=== PATIENT | female | born 1985 ===

== ENCOUNTER 2017-05-08 13:00 | Emergency (ER) | payer SELFPAY ==
[2017-05-08 13:10] VITALS: BMI 27.8
[2017-05-08 13:11] VITALS: TEMP 98.1
[2017-05-08] MEDS ORDERED: Sodium Chloride 0.9% 1,000 ML IV ONE (13:18)
--- NOTE | 2017-05-08 13:31 | C.PDOC ---
History Of Present Illness 31 y/o female presents to ED with complaints of left flank pain and back pain worsening for last few days. Patient reports urinary frequency, subjective fever 2 days ago and mild diarrhea. Patient states "feels sob with pain" and denies known trauma or any other complaints Time Seen by Provider: 05/08/17 13:14 Chief Complaint (Nursing): Back Pain History Per: Patient History/Exam Limitations: no limitations Onset/Duration Of Symptoms: Days Current Symptoms Are (Timing): Still Present Past Medical History Reviewed: Historical Data, Nursing Documentation, Vital Signs Vital Signs: Last Vital Signs Temp 98.1 F 05/08/17 16:10 Pulse 72 05/08/17 16:10 Resp 16 05/08/17 16:10 BP 99/66 L 05/08/17 16:10 Pulse Ox 100 05/08/17 16:10 Surgical History: Cholecystectomy Family History: States: No Known Family Hx - Social History Hx Alcohol Use: No Hx Substance Use: No - Immunization History Hx Tetanus Toxoid Vaccination: No Hx Influenza Vaccination: No Hx Pneumococcal Vaccination: No Review Of Systems Except As Marked, All Systems Reviewed And Found Negative. Respiratory: Positive for: Shortness of Breath Gastrointestinal: Positive for: Diarrhea Musculoskeletal: Positive for: Back Pain Physical Exam - Physical Exam Appears: Non-toxic, No Acute Distress Skin: Normal Color, Warm, Dry, No Rash Head: Atraumatic, Normacephalic Eye(s): bilateral: Normal Inspection Oral Mucosa: Moist Chest: Symmetrical Cardiovascular: Rhythm Regular, No Murmur Respiratory: Normal Breath Sounds, No Rales, No Rhonchi, No Wheezing Gastrointestinal/Abdominal: Soft, No Tenderness, No Guarding, No Rebound Back: Other (mild left flank tenderness) Neurological/Psych: Oriented x3, Normal Speech ED Course And Treatment - Laboratory Results Result Diagrams: 05/08/17 13:40 05/08/17 13:40 O2 Sat by Pulse Oximetry: 99 (RA) Pulse Ox Interpretation: Normal Medical Decision Making Medical Decision Making: r/o uti/pyelo renal stone. labs imaging pending 500: ct shows large ovarian cyst, recommend US. US confirmed 2 cm ovarian cyst, no e/o of torsion. pt with left flank pain, urinary symptoms, subjective fever. will treat as pyelo, culture pending. advise outpt f/u and return precautions Disposition - Disposition Referrals: [facility] [Outside] [facility] [Outside] [facility] [Outside] [facility] [Outside] Oscar Travis MD [Staff Provider] - Disposition: HOME/ ROUTINE Disposition Time: 16:07 Condition: STABLE Additional Instructions: please follow up in clinic. return to er with worsening symptoms or concerns. you will need followup for your ultrasound findings. Prescriptions: Cefpodoxime [Vantin] 100 mg PO BID #14 tab Instructions: Ovarian Cyst (ED), Acute Pyelonephritis (ED), Dyspnea (ED), Flank Pain (ED) Forms: [employer] (Guamanian) - Clinical Impression Clinical Impression: Flank pain, Ovarian cyst, UTI (urinary tract infection) - PA / HAND [employer]NEL [employer]ATER / Resident Statement MD/DO has examined the patient and agrees with the treatment plan. - Scribe Statement The provider has reviewed the documentation as recorded by the Martaibamaya Mistry All medical record entries made by the Martaibamaya were at my direction and personally dictated by me. I have reviewed the chart and agree that the record accurately reflects my personal performance of the history, physical exam, medical decision making, and the department course for this patient. I have also personally directed, reviewed, and agree with the discharge instructions and disposition.
[2017-05-08] MEDS ORDERED: Sodium Chloride 0.9% 1,000 ML ONE (13:32)
--- NOTE | 2017-05-08 13:40 | RAD ---
HISTORY: abd pain COMPARISON: None available. TECHNIQUE: Chest PA and lateral FINDINGS: Examination limited by habitus. LUNGS: Subsegmental left basilar atelectasis. Please note that chest x-ray has limited sensitivity for the detection of pulmonary masses. PLEURA: No significant pleural effusion identified. No definite pneumothorax . CARDIOVASCULAR: The cardiomediastinal silhouette appears within normal limits of size. OSSEOUS STRUCTURES: No acute osseous abnormality identified. VISUALIZED UPPER ABDOMEN: Unremarkable. OTHER FINDINGS: None. IMPRESSION: Subsegmental left basilar atelectasis.
[2017-05-08 13:46] LABS: RBC URINE 5 /hpf (0-3); URINE BACTERIA OCC (<OCC); URINE BILIRUBIN NEGATIVE (NEGATIVE); URINE BLOOD NEGATIVE (NEGATIVE); URINE COLOR Yellow (YELLOW); URINE GLUCOSE (UA) NORMAL (Normal); URINE KETONE TRACE mg/dL (NEGATIVE); URINE LEUKOCYTE ESTERASE 2+ Leu/uL (Negative); URINE PROTEIN NEGATIVE (NEGATIVE); URINE UROBILINOGEN NORMAL mg/dL (0.2-1.0); WBC URINE 5 /hpf (0-5)
[2017-05-08 13:49] LABS: BASO % 0.2 % (0.0-2.0); EOS # 0.2 K/uL (0.0-0.7); EOS % 1.9 % (0.0-4.0); HEMATOCRIT 34.5 % (34.0-47.0); LYMPH # 2.9 K/uL (1.0-4.3); LYMPH % 36.3 % (20.0-40.0); MEAN CELL VOLUME 66.2 fL (81.0-99.0); MEAN CORPUSCULAR HGB CONC 31.8 g/dL (33.0-37.0); MEAN PLATELET VOLUME 8.4 fL (7.2-11.7); MONO # 0.8 K/uL (0.0-0.8); MONO % 9.4 % (0.0-10.0); NRBC % 0.1 % (0.0-2.0); RED CELL DISTRIBUTION WIDTH 17.8 % (11.5-14.5)
[2017-05-08] MEDS ORDERED: cefTRIAXone IV 1 gm in Dextros 50 ML IVPB STA (13:51)
[2017-05-08 13:57] LABS: INR 1.1
[2017-05-08 14:01] LABS: ALB/GLOB RATIO 1.1 (1.0-2.1); ALKALINE PHOSPHATASE 76 U/L (38-126); ALT/SGPT 26 U/L (9-52); AST/SGOT 20 U/L (14-36); BILIRUBIN,TOTAL 0.2 mg/dL (0.2-1.3); BLOOD UREA NITROGEN 11 mg/dL (7-17); CALCIUM 9.4 mg/dl (8.6-10.4); CARBON DIOXIDE 24 mmol/L (22-30); CHLORIDE 101 mmol/L (98-107); GFR AFRICAN-AMERICAN > 60; GLUCOSE,RANDOM 79 mg/dL (65-105); SODIUM 142 mmol/L (132-148); TOTAL PROTEIN 8.2 g/dL (6.3-8.3)
[2017-05-08] MEDS ORDERED: cefTRIAXone IV 1 gm in Dextros 50 ML IVPB ONE (14:21)
--- NOTE | 2017-05-08 14:45 | CT ---
PROCEDURE: CT Abdomen and Pelvis without Oral or IV contrast. HISTORY: left flank pain COMPARISON: None available. TECHNIQUE: Contiguous axial images of the abdomen and pelvis. No oral or IV contrast administered. Coronal and Sagittal reformats generated and reviewed. Radiation dose: Total exam DLP = 595.74 mGy-cm. This CT exam was performed using one or more of the following dose reduction techniques: Automated exposure control, adjustment of the mA and/or kV according to patient size, and/or use of iterative reconstruction technique. FINDINGS: There is limited evaluation of the solid organs without the administration of IV contrast. LOWER THORAX: Trace effusions versus pleural thickening. No visible consolidation or pneumothorax. LIVER: Unremarkable unenhanced appearance. GALLBLADDER AND BILE DUCTS: Cholecystectomy. PANCREAS: Unremarkable unenhanced appearance. SPLEEN: Unremarkable unenhanced appearance. ADRENALS: Unremarkable unenhanced appearance. KIDNEYS AND URETERS: No hydronephrosis or obstructing renal calculus. BLADDER: Under distended urinary bladder appears otherwise unremarkable. REPRODUCTIVE: Uterus is present. Suspect presence of the large left ovarian cyst versus possibility of hydrosalpinx. APPENDIX: The appendix appears within normal limits of caliber. No secondary signs of acute appendicitis. BOWEL: The stomach is nondistended. Lack of oral contrast limits evaluation for bowel pathology. The bowel loops appear within normal limits of caliber without evidence of intestinal obstruction. Diverticulosis without CT evidence of acute diverticulitis. PERITONEUM: No significant free fluid. No definite free air. LYMPH NODES: No bulky lymphadenopathy identified. VASCULATURE: No aortic aneurysm. BONES: No acute osseous abnormality is detected. OTHER FINDINGS: None. IMPRESSION: Suspect presence of large left ovarian cysts versus possibility of hydrosalpinx. Recommend pelvic ultrasound for further evaluation. Cholecystectomy. Diverticulosis without CT evidence of acute diverticulitis. Trace pleural effusions versus pleural thickening.
--- NOTE | 2017-05-08 16:02 | US ---
HISTORY: left sided pain COMPARISON: CT abdomen and pelvis without oral or IV contrast performed 05/08/17 TECHNIQUE: Real-time transabdominal pelvic ultrasound was performed. In addition a transvaginal pelvic ultrasound was necessary to better depict pelvic anatomy. FINDINGS: UTERUS: Measures 7.7 x 5.0 x 6.3 cm. Retroverted. ENDOMETRIUM: Measures 1.1 cm in diameter. CERVIX: No cervical abnormality identified. RIGHT OVARY: Measures 2.9 x 1.8 x 2.3 cm. Blood flow is demonstrated. LEFT OVARY: Measures 4.1 x 2.9 x 3.9 cm. Complex appearing heterogeneous lesion presumed to reflect complex cyst and measures approximately 2.5 x 2.5 x 2.4 cm. Blood flow is demonstrated. FREE FLUID: Small pelvic free fluid adjacent to bilateral ovaries. OTHER FINDINGS: None. IMPRESSION: 2.5 x 2.5 x 2.4 cm complex heterogeneous lesion involving the left ovary, possibly complex cyst. Recommend 6 week ultrasound follow-up to assess for resolution. Small free fluid adjacent to bilateral ovaries.
[2017-05-08 16:11] VITALS: BP 99/66; PULSE 72; RESP 16
[2017-05-08 17:27] VITALS: O2SAT 99
== END 2017-05-08 16:22 | disposition home or self-care (01) ==
LOC: C.ER 13:00 → EDBD 13:00 → C.ER 16:22
DX: N39.0 Urinary tract infection, site not specified (principal); N83.202 Unspecified ovarian cyst, left side; R10.9 Unspecified abdominal pain
CPT/HCPCS: 71020; 74176; 76830; 76856; 80053; 81001; 83690; 84703; 85025; 85610; 85730; 87086; 96374; 99284; J0696; J7040

== ENCOUNTER 2017-05-12 10:25 | Inpatient (IN) | payer MEDICAID, OTHER ==
[2017-05-12 10:25] VITALS: BMI 27.8
[2017-05-12] MEDS ORDERED: Sodium Chloride 0.9% 1,000 ML IV ONE (11:31)
--- NOTE | 2017-05-12 11:37 | C.PDOC ---
History Of Present Illness Patient is a 31 y/o female who presents to the ED with complaints of dysuria and back pain. Patient was seen approximately 4 days ago for similar symptoms and received Vantin 100mg; reports to be almost finished with the antibiotics, but admits pain worsening since last night. Patient states pain began at L lumbar area that radiated to L flank area; admits to nausea and difficulty breathing associated with the abdominal pain. Denies any other pain at this time. Time Seen by Provider: 05/12/17 11:10 Chief Complaint (Nursing): Female Genitourinary History Per: Patient History/Exam Limitations: no limitations Onset/Duration Of Symptoms: Hrs (nausea/difficulty breathing since last night.) , Days (pain worsened since last night. ) Current Symptoms Are (Timing): Still Present Pain Scale Rating Of: 6 Quality Of Discomfort: Burning Associated Symptoms: Nausea. denies: Vomiting, Diarrhea Alleviating Factors: None Recent travel outside of the [place]: No Past Medical History Reviewed: Historical Data, Nursing Documentation, Vital Signs Vital Signs: Last Vital Signs Temp 97.3 F L 05/12/17 16:15 Pulse 69 05/12/17 16:15 Resp 18 05/12/17 16:15 BP 101/66 05/12/17 16:15 Pulse Ox 99 05/12/17 16:15 - Medical History PMH: No Chronic Diseases Surgical History: Cholecystectomy Family History: States: Unknown Family Hx - Social History Hx Alcohol Use: No Hx Substance Use: No - Immunization History Hx Tetanus Toxoid Vaccination: No Hx Influenza Vaccination: No Hx Pneumococcal Vaccination: No Review Of Systems Constitutional: Negative for: Fever, Chills Cardiovascular: Negative for: Chest Pain, Palpitations Respiratory: Negative for: Shortness of Breath Gastrointestinal: Positive for: Nausea, Abdominal Pain (L flank area). Negative for: Vomiting, Diarrhea Genitourinary: Positive for: Dysuria Physical Exam - Physical Exam Appears: Well, Non-toxic, In Acute Distress Skin: Normal Color, Warm, Dry Head: Atraumatic, Normacephalic Oral Mucosa: Moist Chest: Symmetrical Cardiovascular: Rhythm Regular, No Murmur Respiratory: Normal Breath Sounds, No Rales, No Rhonchi, No Wheezing Gastrointestinal/Abdominal: Soft, No Tenderness Back: CVA Tenderness (L sided) Extremity: Normal ROM (x4) Neurological/Psych: Oriented x3, Normal Speech, Normal Cognition ED Course And Treatment - Laboratory Results Result Diagrams: 05/12/17 11:42 05/12/17 11:42 O2 Sat by Pulse Oximetry: 100 (room air ) Pulse Ox Interpretation: Normal Progress Note: Blood work, UA, and Urine Culture ordered; Zofran, Toradol, and IV Fluids administered. Medical Decision Making Medical Decision Making: Old records reviewed, and the patient was last seen in this ED on 05/08/17 for similar symptoms. Urine cultures shows (+) gram positive cocci which may be staph or a contaminate. Patient has failed outpatient therapy and is having nausea and worsened CVA tenderness. WBC count has elevated. A new set of urine cultures sent and the patient was placed on Cipro. The case was discussed with Dr. Breen (hospitalist) who agrees to admit the patient to his service. Disposition - Disposition Disposition: HOSPITALIZED Disposition Time: 12:00 Condition: FAIR - Clinical Impression Clinical Impression: Pyelonephritis - Scribe Statement The provider has reviewed the documentation as recorded by the Scribamaya Hollingsworth All medical record entries made by the Martaibamaya were at my direction and personally dictated by me. I have reviewed the chart and agree that the record accurately reflects my personal performance of the history, physical exam, medical decision making, and the department course for this patient. I have also personally directed, reviewed, and agree with the discharge instructions and disposition.
[2017-05-12 11:47] LABS: BASO % 0.2 % (0.0-2.0); EOS # 0.1 K/uL (0.0-0.7); EOS % 1.2 % (0.0-4.0); HEMATOCRIT 32.2 % (34.0-47.0); LYMPH # 2.8 K/uL (1.0-4.3); MEAN CELL VOLUME 66.1 fL (81.0-99.0); MEAN CORPUSCULAR HEMOGLOBIN 20.6 pg (27.0-31.0); MEAN CORPUSCULAR HGB CONC 31.2 g/dL (33.0-37.0); MEAN PLATELET VOLUME 8.1 fL (7.2-11.7); MONO # 0.7 K/uL (0.0-0.8); MONO % 6.2 % (0.0-10.0); NRBC % 0.1 % (0.0-2.0); RED CELL DISTRIBUTION WIDTH 17.4 % (11.5-14.5); WHITE BLOOD COUNT 11.2 K/uL (4.8-10.8)
[2017-05-12] MEDS ORDERED: Sodium Chloride 0.9% 1,000 ML ONE ×2 (11:52→16:05)
[2017-05-12 11:56] LABS: RBC URINE 71 /hpf (0-3); URINE BACTERIA RARE (<OCC); URINE BILIRUBIN NEGATIVE (NEGATIVE); URINE BLOOD 3+ (NEGATIVE); URINE COLOR Yellow (YELLOW); URINE GLUCOSE (UA) NORMAL (Normal); URINE KETONE NEGATIVE (NEGATIVE); URINE LEUKOCYTE ESTERASE NEG Leu/uL (Negative); URINE PROTEIN NEGATIVE (NEGATIVE); URINE UROBILINOGEN NORMAL mg/dL (0.2-1.0); WBC URINE 4 /hpf (0-5)
[2017-05-12 12:02] LABS: ALB/GLOB RATIO 1.2 (1.0-2.1); ALKALINE PHOSPHATASE 70 U/L (38-126); ALT/SGPT 24 U/L (9-52); AST/SGOT 18 U/L (14-36); BILIRUBIN,TOTAL 0.5 mg/dL (0.2-1.3); BLOOD UREA NITROGEN 10 mg/dL (7-17); CALCIUM 8.9 mg/dl (8.6-10.4); CARBON DIOXIDE 20 mmol/L (22-30); CHLORIDE 103 mmol/L (98-107); GFR AFRICAN-AMERICAN > 60; GLUCOSE,RANDOM 75 mg/dL (65-105); POTASSIUM 3.8 mmol/L (3.6-5.2); SODIUM 141 mmol/L (132-148); TOTAL PROTEIN 7.6 g/dL (6.3-8.3)
[2017-05-12] MEDS ORDERED: Ciprofloxacin 400mg/200ml D5W 400 MG/200 ML BAG IV STA (12:58)
--- NOTE | 2017-05-12 13:23 | CP.PCM.HP ---
History of Present Illness - History of Present Illness History of Present Illness: Patient seen and examined at approximately 13:00 in the ED. Patient is a Full code status at this time CC: flank pain with fevers HPI: 31 year old female with past medical history significant for ovarian cyst ( incidental finding during ED visit days prior ) presents with complains of lower abdominal left sided flank pain with urinary urgency that has been present for the past two weeks. Patient states that she initially thought that she pulled a muscle in her lower back. She began applying icy-hot therapy and using ibuprofen without much relief. She states that she then developed a fever which brought her to the emergency department here on May 08. Here, a UA was performed which confirmed UTI. Patient was given a prescription for the antibiotic Vantin (Cefpodoxime). She was asked to take twice a day for one week. Patient states that she took the medication but did not have much resolution of her symptoms. She states that she still had urinary urgency with flank pains as well as subjective fevers last night. The pain intensified and thus she came in today for further evaluation. She denies chest pain, palpitationsm paresthesias, lightheadedness, vomiting, sick contacts, weight changes, hematochezia at this time. Of note: Patient had CT abdomen and pelvis which showed a large ovarian cyst. There were recommendations for a pelvic and transvaginal ultrasound which was performed confirming the sizes of the cyst ( 2.5 x2.5x 2.4cm). Recommendations were made to follow up with [facility] outpatient and obtain a repeat ultrasound in approx 6 weeks. Patient is currently menstruating. She states that it started today. OBGYN Hx: ( vaginal delivery) Menarche age 15; periods are regular occurring every month for 7 day period. Some discomfort on day 1 occasionally requiring paracetemol (Tylenol equivalent) PMHx- as noted above PSHx- cholecystectomy and umbilical hernia repair in 2015 Fam Hx- reviewed and noncontributory Meds- Vantin 100 mg PO BID for 7 days Social Hx- denies tobacco use, alcohol use or illicit drug use Allergies- NKDA Present on Admission - Present on Admission Any Indicators Present on Admission: No Review of Systems - Constitutional Constitutional: Fever - EENT Eyes: absent: Blurred Vision Nose/Mouth/Throat: absent: Nasal Congestion, Nasal Discharge - Cardiovascular Cardiovascular: absent: Chest Pain, Chest Pain at Rest - Respiratory Respiratory: absent: Cough, Hemoptysis - Gastrointestinal Gastrointestinal: Abdominal Pain, Nausea. absent: Vomiting - Genitourinary Genitourinary: Flank Pain, Urinary Urgency. absent: Dysuria - Reproductive: Female Reproductive:Female: Currently Menstual, Menses 1-7 Days - Menstruation Menstruation: Currently Menstual - Musculoskeletal Musculoskeletal: Back Pain - Integumentary Integumentary: absent: Skin Pain, Swelling - Neurological Neurological: absent: Abnormal Gait, Abnormal Hearing - Psychiatric Psychiatric: absent: Anxiety - Hematologic/Lymphatic Hematologic: absent: Easy Bleeding, Lymphadenopathy Past Patient History - Past Social History Smoking Status: Never Smoked - PSYCHIATRIC Hx Substance Use: No - SURGICAL HISTORY Hx Cholecystectomy: Yes - ANESTHESIA Hx Anesthesia: Yes Hx Anesthesia Reactions: No Meds Allergies/Adverse Reactions: Allergies Allergy/AdvReac Type Severity Reaction Status Date / Time No Known Allergies Allergy Verified 05/08/17 13:09 Physical Exam - Constitutional Appears: Non-toxic, No Acute Distress - Head Exam Head Exam: ATRAUMATIC, NORMAL INSPECTION, NORMOCEPHALIC - Eye Exam Eye Exam: EOMI, Normal appearance, PERRL Pupil Exam: NORMAL ACCOMODATION, PERRL - ENT Exam ENT Exam: Mucous Membranes Moist - Neck Exam Neck exam: Positive for: Full Rom - Respiratory Exam Respiratory Exam: NORMAL BREATHING PATTERN. absent: Wheezes - Cardiovascular Exam Cardiovascular Exam: REGULAR RHYTHM, +S1, +S2 - GI/Abdominal Exam GI & Abdominal Exam: Normal Bowel Sounds, Soft, Tenderness. absent: Distended, Firm, Guarding Additional comments: healed laparascopic incision sites noted on abdomen - Extremities Exam Extremities exam: Positive for: full ROM, normal capillary refill, normal inspection, pedal pulses present. Negative for: pedal edema - Back Exam Back exam: CVA tenderness (L), FULL ROM - Neurological Exam Neurological exam: Alert, CN II-XII Intact, Oriented x3, Reflexes Normal - Psychiatric Exam Psychiatric exam: Normal Affect, Normal Mood - Skin Skin Exam: Intact, Normal Color, Warm Results - Vital Signs Recent Vital Signs: Last Vital Signs Temp 98.2 F 05/12/17 12:35 Pulse 68 05/12/17 12:35 Resp 18 05/12/17 12:35 BP 111/75 05/12/17 12:35 Pulse Ox 100 05/12/17 12:58 - Labs Result Diagrams: 05/12/17 11:42 05/12/17 11:42 Assessment & Plan (1) Pyelonephritis Assessment and Plan: Previously on 7 day course of Vantin ( Cefpoxomine) Patient took approx 4 days worth. Now on Cipro (Started 05/12) On Florastor as well F/U UA and UC since UC with specificities was not obtained during the first ED encounter on 05/08. Tylenol for pain relief N/S @ 100 mls/hr Cont to monitor F/U morning labs Status: Acute (2) Ovarian cyst Assessment and Plan: Patient dimensions as noted on Transvag U/S from 05/08: 2.5 x 25 x 2.4 cm complex lesions involving left ovary. F/U with ultrasound in 6 weeks upon discharge Should f/u with outpatient OBGYN as well. Status: Acute (3) Prophylactic measure Assessment and Plan: SCDs, ambulates Will continue to monitor Status: Acute
[2017-05-12] MEDS ORDERED: Ciprofloxacin 400mg/200ml D5W 400 MG/200 ML BAG IVPB ONE (13:53)
[2017-05-12] MEDS: Sodium Chloride 0.9% 1,000 ML IV SCH (16:05)
[2017-05-12] MEDS: Saccharomyces Boulardi 250 mg Cap PO SCH (18:06)
[2017-05-13] MEDS: Sodium Chloride 0.9% 1,000 ML IV SCH ×5 (00:45→21:05)
[2017-05-13] MEDS: Ciprofloxacin 400mg/200ml D5W 400 MG/200 ML BAG IVPB SCH ×2 (03:10→14:12)
[2017-05-13 07:55] LABS: BASO % 0.1 % (0.0-2.0); EOS # 0.2 K/uL (0.0-0.7); EOS % 2.3 % (0.0-4.0); HEMATOCRIT 30.6 % (34.0-47.0); LYMPH # 3.6 K/uL (1.0-4.3); LYMPH % 43.1 % (20.0-40.0); MEAN CELL VOLUME 66.4 fL (81.0-99.0); MEAN CORPUSCULAR HGB CONC 31.6 g/dL (33.0-37.0); MEAN PLATELET VOLUME 8.4 fL (7.2-11.7); MONO # 0.6 K/uL (0.0-0.8); MONO % 6.7 % (0.0-10.0); RED CELL DISTRIBUTION WIDTH 18.1 % (11.5-14.5); WHITE BLOOD COUNT 8.4 K/uL (4.8-10.8)
[2017-05-13 08:00] LABS: INR 1.1
[2017-05-13 08:04] LABS: CHLORIDE 108 mmol/L (98-107)
[2017-05-13 08:05] LABS: SODIUM 142 mmol/L (132-148)
[2017-05-13 08:07] LABS: BILIRUBIN,TOTAL 0.3 mg/dL (0.2-1.3); GFR AFRICAN-AMERICAN > 60
[2017-05-13 08:08] LABS: ALB/GLOB RATIO 1.2 (1.0-2.1); ALKALINE PHOSPHATASE 59 U/L (38-126); ALT/SGPT 23 U/L (9-52); AST/SGOT 20 U/L (14-36); BLOOD UREA NITROGEN 7 mg/dL (7-17); CALCIUM 8.3 mg/dl (8.6-10.4); CARBON DIOXIDE 24 mmol/L (22-30); GLUCOSE,RANDOM 75 mg/dL (65-105); MAGNESIUM 1.7 mg/dL (1.6-2.3); PHOSPHOROUS 3.3 mg/dL (2.5-4.5); TOTAL PROTEIN 6.9 g/dL (6.3-8.3)
[2017-05-13 09:50] VITALS: RESP 20
[2017-05-13] MEDS: Saccharomyces Boulardi 250 mg Cap PO SCH ×2 (10:08→17:42)
--- NOTE | 2017-05-13 14:24 | CP.PCM.PN ---
<Kashif Loya - Last Filed: 05/13/17 14:55> Subjective - Date & Time of Evaluation Date of Evaluation: 05/13/17 Time of Evaluation: 14:23 - Subjective Subjective: PGY1 Note for Dr. Conner HPI: Patient seen and examined at bedside. Doing well. States she is feeling much better. Still urinating frequently but states her pain was a 10/10 yesterday and today is a 6/10. She is still having blood in her urine but contributes this to the fact that she is currently menstruating. Patient states she is trying to get . Still has back pain on the L. side. No CP, SOB, N /V/D. Objective - Vital Signs/Intake and Output Vital Signs (last 24 hours): Temp Pulse Resp BP Pulse Ox 98.2 F 84 20 104/70 99 05/13/17 08:00 05/13/17 08:00 05/13/17 08:00 05/13/17 08:00 05/13/17 08:00 Intake and Output: 05/13/17 05/13/17 06:59 18:59 Intake Total 1650 Balance 1650 - Medications Medications: Current Medications Acetaminophen (Tylenol 325mg Tab) 650 mg PO Q6 PRN PRN Reason: Pain, Mild (1-3) Last Admin: 05/13/17 10:07 Dose: 650 mg Sodium Chloride (Sodium Chloride 0.9%) 1,000 mls @ 100 mls/hr IV .Q10H [facility] Last Admin: 05/13/17 11:44 Dose: Not Given Ceftriaxone Sodium 1 gm/ (Sodium Chloride) 100 mls @ 100 mls/hr IVPB Q12H [facility] Pneumococcal Polyvalent Vaccine (Pneumovax 23 Vaccine) 0.5 ml IM .ONCE ONE Stop: 05/14/17 10:01 Saccharomyces Boulardii (Florastor) 250 mg PO BID CONSTANCE Last Admin: 05/13/17 10:08 Dose: 250 mg - Labs Labs: 05/13/17 07:42 05/13/17 07:42 PT 12.7 SECONDS (9.7-12.2) H 05/13/17 07:42 INR 1.1 05/13/17 07:42 APTT 32 SECONDS (21-34) 05/13/17 07:42 - Constitutional Appears: Well, No Acute Distress - Head Exam Head Exam: ATRAUMATIC, NORMAL INSPECTION, NORMOCEPHALIC - Eye Exam Eye Exam: EOMI - ENT Exam ENT Exam: Mucous Membranes Moist - Respiratory Exam Respiratory Exam: Clear to Ausculation Bilateral, NORMAL BREATHING PATTERN - Cardiovascular Exam Cardiovascular Exam: REGULAR RHYTHM - GI/Abdominal Exam GI & Abdominal Exam: Soft, Normal Bowel Sounds. absent: Distended, Tenderness - Extremities Exam Extremities Exam: absent: Joint Swelling, Tenderness - Back Exam Back Exam: CVA tenderness (L) - Neurological Exam Neurological Exam: Alert, Awake, Oriented x3 - Psychiatric Exam Psychiatric exam: Normal Affect, Normal Mood - Skin Skin Exam: Dry, Intact, Normal Color, Warm Assessment and Plan - Assessment and Plan (Free Text) Assessment: (1) Pyelonephritis Assessment and Plan: Previously on 7 day course of Vantin (Cefpoxomine) Patient took approx 4 days worth. Cipro (Started 05/12) - changed to Rochepin 1g BID (05/13) On Florastor as well UC - No growth Tylenol for pain relief N/S @ 100 mls/hr Cont to monitor Status: Acute (2) Ovarian cyst Assessment and Plan: Patient dimensions as noted on Transvag U/S from 05/08: 2.5 x 25 x 2.4 cm complex lesions involving left ovary. F/U with ultrasound in 6 weeks upon discharge Should f/u with outpatient OBGYN as well. Status: Acute (3) Prophylactic measure Assessment and Plan: SCDs, ambulates Will continue to monitor Status: Acute <Kathie Conner V - Last Filed: 05/13/17 15:25> Objective - Vital Signs/Intake and Output Vital Signs (last 24 hours): Temp Pulse Resp BP Pulse Ox 98.2 F 84 20 104/70 99 05/13/17 08:00 05/13/17 08:00 05/13/17 08:00 05/13/17 08:00 05/13/17 08:00 Intake and Output: 05/13/17 05/13/17 06:59 18:59 Intake Total 1650 1300 Balance 1650 1300 - Medications Medications: Current Medications Acetaminophen (Tylenol 325mg Tab) 650 mg PO Q6 PRN PRN Reason: Pain, Mild (1-3) Last Admin: 05/13/17 10:07 Dose: 650 mg Sodium Chloride (Sodium Chloride 0.9%) 1,000 mls @ 100 mls/hr IV .Q10H [facility] Last Admin: 05/13/17 11:44 Dose: Not Given Ceftriaxone Sodium (Rocephin Iv 1 Gm Duplex) 50 mls @ 100 mls/hr IVPB Q12H [facility] Last Admin: 05/13/17 14:26 Dose: Not Given Pneumococcal Polyvalent Vaccine (Pneumovax 23 Vaccine) 0.5 ml IM .ONCE ONE Stop: 05/14/17 10:01 Saccharomyces Boulardii (Florastor) 250 mg PO BID [facility] Last Admin: 05/13/17 10:08 Dose: 250 mg - Labs Labs: 05/13/17 07:42 05/13/17 07:42 PT 12.7 SECONDS (9.7-12.2) H 05/13/17 07:42 INR 1.1 05/13/17 07:42 APTT 32 SECONDS (21-34) 05/13/17 07:42 Attending/Attestation - Attestation I have personally seen and examined this patient.: Yes I have fully participated in the care of the patient.: Yes I have reviewed all pertinent clinical information, including history, physical exam and plan: Yes Notes (Text): Patient seen, examined, and case discussed with day-time resident. Patient seen at bedside with two friends, patient permits us to speak regarding her medical information in front of her friends. Patient reporting increased frequency, dysuria, and associated left flank pain. Denies fever, denies chills, denies chest pain, denies shortness of breath, denies abdominal pain, denies nausea, denies vomitting, denies constipation, denies numbness, denies tingling. Patient re-evaluated in the afternoon about 1:20PM. without friends present. Patient reports she has been having symptoms for couple of days. patient denies history of stds. patient reports she is monogamous with her , and have been trying to get for the past month. Patient has not seen PMD nor [facility] to setup for care Assessment/Plan (1) Pyelonephritis Assessment and Plan: * Previously on 7 day course of Vantin ( Cefpoxomine); Patient took approx 4 days worth. * Urine culture (05/12/17): no growth * UA (05/12/17):3+ blood, hematuria: 71, negative urine hcg * 2.5 X 2.5cm X. 2.4 CM complex heterogenous lesion involving the left ovary. Recommended 6 week ultrasound follow-up to assess for resolution. Small free fluid adjacent to bilateral ovaries * CT Abdomen/Pelvis (05/08/17): suspected presence of large ovarian cysts versus possibility of hydrosalpinx. Recommend pelvis US, cholecystectomy. Diverticulosis without CT evidence of acute diverticulitis; trace pleural effusions versus pleural thickening * Repeat pelvic US * Ordered for Renal US * Start Rocephin 1 gram IV q 12 hours * Florastor 250mg PO bid * Will consult [facility] for further recommendations Status: Acute (2) Complex ovarian cyst Assessment and Plan: * Patient dimensions as noted on Transvag U/S from 05/08: 2.5 x 25 x 2.4 cm complex lesions involving left ovary. Per radiology report recommended for F/U with ultrasound in 6 weeks upon discharge * Repeat pelvic US * Will consult [facility] for further recommendations Status: Acute (3) Prophylactic measure Assessment and Plan: * SCDs, ambulates * Will continue to monitor Status: Acute
[2017-05-13] MEDS: cefTRIAXone IV 1 gm in Dextros 50 ML IVPB SCH (14:26)
--- NOTE | 2017-05-13 21:38 | CP.PCM.CON ---
History of Present Illness - History of Present Illness History of Present Illness: Asked by Dr. Conner to see patient: left ovarian cyst Patient received in bed, room 370B - and daughter present. 31 y.o. , LMP - onset 05/12/17; admitted for IV antibiotics for possible pyelonephritis. Patient was seen in E.D. 05/08/17 c/o LAP and low back pain, Diagnosed with UTI; Incidental finding of complex left ovarian cyst - discharged home on p.o. antibiotics; and advised to secure loading supervisor for follow up of the latter. Patient returns to E.D. 05/12/17, c/o worsening LAP and left low back pain, with chills and subjective fever. Now, patient reports left flank pain is improved - pain scale now 8/10 versus 10/10 upon presentation/admission 05/12/17. (+) chills; denies nausea, vomiting; (+) increased urinary frequency, since admission. Currently on menses - hence reports vaginal bleeding. P Ob: 2010, , female, 4 Kg; no GDM; no complications. 2012, Spont ab at 6-8 weeks, with D&C; no complications. 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 Most recent Pap test - during of 2010. Not seen loading supervisor since PMH: denies PSH: D&C; 07/2015, laparoscopic cholecystectomy and umbilical hernia repair. NKDA Meds: denies Soc Hx: denies tobacco, illicit drug or EtOH use. x 7 years. House ; lives with and daughter Fam Hx: Mother alive 57 y.o. Father alive 62 y.o. No known fam h/o cancer. 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 Alcohol: None Drugs: Denies Home Situation {Lives}: With Family - CARDIAC Hx Cardiac Disorders: No - PULMONARY Hx Respiratory Disorders: No - NEUROLOGICAL Hx Neurological Disorder: No - HEENT Hx HEENT Problems: No - RENAL Hx Chronic Kidney Disease: No - ENDOCRINE/METABOLIC Hx Endocrine Disorders: No - HEMATOLOGICAL/ONCOLOGICAL Hx Blood Disorders: No - INTEGUMENTARY Hx Dermatological Problems: No - MUSCULOSKELETAL/RHEUMATOLOGICAL Hx Musculoskeletal Disorders: No - GASTROINTESTINAL Hx Gall Bladder Disease: Yes (2014) - GENITOURINARY/GYNECOLOGICAL Hx Genitourinary Disorders: No LMP:: 05/12/2017 : 2 Para: 1 Termination of : 1 - PSYCHIATRIC Hx Psychophysiologic Disorder: No Hx Substance Use: No - SURGICAL HISTORY Hx Surgeries: Yes Hx Cholecystectomy: Yes (07/2015) Hx Dilation and Curettage: Yes (2012) Hx Herniorrhaphy: Yes (07/2015) - ANESTHESIA Hx Anesthesia: Yes Hx Anesthesia Reactions: No Meds Allergies/Adverse Reactions: Allergies Allergy/AdvReac Type Severity Reaction Status Date / Time No Known Allergies Allergy Verified 05/08/17 13:09 - Medications Medications: Current Medications Acetaminophen (Tylenol 325mg Tab) 650 mg PO Q6 PRN PRN Reason: Pain, Mild (1-3) Last Admin: 05/13/17 20:56 Dose: 650 mg Sodium Chloride (Sodium Chloride 0.9%) 1,000 mls @ 100 mls/hr IV .Q10H [facility] Last Admin: 05/13/17 21:05 Dose: Not Given Ceftriaxone Sodium (Rocephin Iv 1 Gm Duplex) 50 mls @ 100 mls/hr IVPB Q12H [facility] Last Admin: 05/13/17 14:26 Dose: Not Given Pneumococcal Polyvalent Vaccine (Pneumovax 23 Vaccine) 0.5 ml IM .ONCE ONE Stop: 05/14/17 10:01 Saccharomyces Boulardii (Florastor) 250 mg PO BID [facility] Last Admin: 05/13/17 17:42 Dose: 250 mg Physical Exam - Constitutional Appears: Well, Non-toxic, No Acute Distress - Head Exam Head Exam: NORMAL INSPECTION - Eye Exam Eye Exam: Normal appearance - Neck Exam Neck exam: Positive for: Full Rom - Respiratory Exam Respiratory Exam: NORMAL BREATHING PATTERN - Cardiovascular Exam Cardiovascular Exam: REGULAR RHYTHM - GI/Abdominal Exam GI & Abdominal Exam: Soft ( exam - deferred) - Extremities Exam Extremities exam: Positive for: normal inspection - Back Exam Back exam: CVA tenderness (L) - Neurological Exam Neurological exam: Alert, Oriented x3 - Psychiatric Exam Psychiatric exam: Normal Affect, Normal Mood - Skin Skin Exam: Dry, Normal Color, Warm Results - Vital Signs Recent Vital Signs: Last Vital Signs Temp 97.9 F 05/13/17 15:00 Pulse 67 05/13/17 15:00 Resp 20 05/13/17 15:00 BP 118/76 05/13/17 15:00 Pulse Ox 98 05/13/17 15:00 - Labs Result Diagrams: 05/13/17 07:42 05/13/17 07:42 Labs: Laboratory Results - last 24 hr 05/13/17 05/13/17 05/13/17 07:42 07:42 07:42 WBC 8.4 RBC 4.61 Hgb 9.7 L Hct 30.6 L MCV 66.4 L MCH 21.0 L MCHC 31.6 L RDW 18.1 H Plt Count 325 MPV 8.4 Neut % (Auto) 47.8 L Lymph % (Auto) 43.1 H [place] % (Auto) 6.7 Eos % (Auto) 2.3 Baso % (Auto) 0.1 Neut # 4.0 Lymph # 3.6 [place] # 0.6 Eos # 0.2 Baso # 0.0 PT 12.7 H INR 1.1 APTT 32 Sodium 142 Potassium 4.0 Chloride 108 H Carbon Dioxide 24 Anion Gap 14 BUN 7 Creatinine 0.7 Est GFR ( Amer) > 60 Est GFR (Non-Af Amer) > 60 Random Glucose 75 Calcium 8.3 L Phosphorus 3.3 Magnesium 1.7 Total Bilirubin 0.3 AST 20 ALT 23 Alkaline Phosphatase 59 Total Protein 6.9 Albumin 3.7 Globulin 3.2 Albumin/Globulin Ratio 1.2 Assessment & Plan - Assessment and Plan (Free Text) Assessment: Ultrasound report and images from 05/08/17; and labs from 05/13/17 reviewed by me personally. S/P renal and pelvic ultrasound recently - reports pending. 31 y.o. , currently on her menses, on IV antibiotics for presumed pyelonephritis. Incidental finding of complex left ovarian cyst - most likely physiologic, hemorrhagic cyst. Patient has been afebrile during hospital stay thus far, T max 98.2 0800 hours 05/13/17. No elevation in WBC. It was discussed with patient to follow up with loading supervisor upon discharge: recommended ultrasound follow up in 6 weeks noted. Patient expressed an understanding and agrees. Her questions were answered. Lastly, anemic - asymptomatic and hemodynamically stable. Plan: As per primary medical team Thank you for the pleasure of this consultation - Date & Time Date: 05/13/17 Time: 21:15
[2017-05-14] MEDS: cefTRIAXone IV 1 gm in Dextros 50 ML IVPB SCH (03:25)
[2017-05-14] MEDS: Sodium Chloride 0.9% 1,000 ML IV SCH (05:25)
[2017-05-14 09:20] VITALS: BP 101/68; PULSE 76; TEMP 97.3; O2SAT 100
[2017-05-14] MEDS ORDERED: Pneumococcal 23-Valent Vaccine IM ONE (10:00)
[2017-05-14] MEDS: Saccharomyces Boulardi 250 mg Cap PO SCH (10:45)
--- NOTE | 2017-05-14 11:02 | US ---
Pelvic ultrasound History: Complex ovarian cyst. Comparison: None available. Technique: Real-time sonography was performed through the pelvis utilizing transabdominal and transvaginal techniques. Findings: Uterus: 7.3 x 4.4 x 5.7 centimeters. Retroverted. Endometrium measures 6 millimeters, within normal limits. Small amount of free fluid within the pelvic cul-de-sac. Right ovary: 2.4 x 1.8 x 2.4 centimeters. Normal flow. Small follicles. Left ovary: 3.3 x 2.5 x 1.8 centimeters. Normal flow. Complex heterogeneous cystic lesion measuring 1.4 x 1.2 x 1.2 centimeters. Impression: 1.4 centimeter complex cystic lesion at the level of the left ovary. This may represent a hemorrhagic cyst versus degenerating follicle versus additional etiology. Six week interval followup may be helpful if clinically indicated. Small amount of free fluid within the pelvic cul-de-sac and adjacent to the bilateral adnexa. These findings were preliminarily reported at 9:53 p.m. on 05/13/[address] Leland Bauer from [facility].
--- NOTE | 2017-05-14 11:08 | US ---
Renal ultrasound History: Calculus. Comparison: None available. Technique: Real-time sonography was performed through the kidneys. Findings: Right kidney: 11.5 x 4.3 x 4.9 centimeters. Midpole echogenic rounded focus suggestive for a calculus measuring 8 x 6 x 8 millimeters. Mild fullness of the right renal collecting system. Left Kidney: No calculi. Mild fullness of the upper pole of the left renal collecting system. Visualized urinary bladder is grossly preserved. Visualized aorta is grossly preserved. Impression: 8 millimeter echogenic foci in the midpole of the right kidney suggestive for a calculus. Mild fullness of the right renal collecting system. Clinical correlation. Mild fullness in the upper pole of the left renal collecting system.
[2017-05-14 11:41] LABS: BASO % 0.1 % (0.0-2.0); EOS # 0.2 K/uL (0.0-0.7); EOS % 2.9 % (0.0-4.0); LYMPH # 2.2 K/uL (1.0-4.3); LYMPH % 27.5 % (20.0-40.0); MEAN CELL VOLUME 66.5 fL (81.0-99.0); MEAN CORPUSCULAR HEMOGLOBIN 21.1 pg (27.0-31.0); MEAN CORPUSCULAR HGB CONC 31.7 g/dL (33.0-37.0); MEAN PLATELET VOLUME 8.5 fL (7.2-11.7); MONO # 0.5 K/uL (0.0-0.8); MONO % 5.7 % (0.0-10.0); RED CELL DISTRIBUTION WIDTH 17.9 % (11.5-14.5); WHITE BLOOD COUNT 7.9 K/uL (4.8-10.8)
[2017-05-14 11:57] LABS: ALB/GLOB RATIO 1.1 (1.0-2.1); ALKALINE PHOSPHATASE 61 U/L (38-126); ALT/SGPT 24 U/L (9-52); AST/SGOT 16 U/L (14-36); BILIRUBIN,TOTAL 0.2 mg/dL (0.2-1.3); BLOOD UREA NITROGEN 5 mg/dL (7-17); CALCIUM 8.7 mg/dl (8.6-10.4); CARBON DIOXIDE 22 mmol/L (22-30); CHLORIDE 105 mmol/L (98-107); GFR AFRICAN-AMERICAN > 60; GLUCOSE,RANDOM 81 mg/dL (65-105); MAGNESIUM 1.7 mg/dL (1.6-2.3); POTASSIUM 3.7 mmol/L (3.6-5.2); SODIUM 142 mmol/L (132-148)
--- NOTE | 2017-05-14 13:57 | CP.PCM.DIS ---
<Kashif Loya - Last Filed: 05/14/17 13:53> Provider - Provider Date of Admission: 05/12/17 12:59 Attending physician: Kathie Conner DO Primary care physician: Clinic Consults: Cement Block Maker: William Time Spent in preparation of Discharge (in minutes): 45 Hospital Course - Lab Results Lab Results: Micro Results 05/12/17 13:30 Blood Blood Culture - Preliminary NO GROWTH AFTER 24 HOURS 05/12/17 13:00 Blood Blood Culture - Preliminary NO GROWTH AFTER 24 HOURS Most Recent Lab Values WBC 7.9 K/uL (4.8-10.8) 05/14/17 11:29 RBC 4.82 Mil/uL (3.80-5.20) 05/14/17 11:29 Hgb 10.2 g/dL (11.0-16.0) L 05/14/17 11:29 Hct 32.0 % (34.0-47.0) L 05/14/17 11:29 MCV 66.5 fL (81.0-99.0) L 05/14/17 11:29 MCH 21.1 pg (27.0-31.0) L 05/14/17 11:29 MCHC 31.7 g/dL (33.0-37.0) L 05/14/17 11:29 RDW 17.9 % (11.5-14.5) H 05/14/17 11:29 Plt Count 353 K/uL (130-400) 05/14/17 11:29 MPV 8.5 fL (7.2-11.7) 05/14/17 11:29 Neut % (Auto) 63.8 % (50.0-75.0) 05/14/17 11:29 Lymph % (Auto) 27.5 % (20.0-40.0) 05/14/17 11:29 Patrick % (Auto) 5.7 % (0.0-10.0) 05/14/17 11:29 Eos % (Auto) 2.9 % (0.0-4.0) 05/14/17 11:29 Baso % (Auto) 0.1 % (0.0-2.0) 05/14/17 11:29 Neut # 5.0 K/uL (1.8-7.0) 05/14/17 11:29 Lymph # 2.2 K/uL (1.0-4.3) 05/14/17 11:29 Patrick # 0.5 K/uL (0.0-0.8) 05/14/17 11:29 Eos # 0.2 K/uL (0.0-0.7) 05/14/17 11:29 Baso # 0.0 K/uL (0.0-0.2) 05/14/17 11:29 Differential Comment 05/12/17 11:42 PT 12.7 SECONDS (9.7-12.2) H 05/13/17 07:42 INR 1.1 05/13/17 07:42 APTT 32 SECONDS (21-34) 05/13/17 07:42 Sodium 142 mmol/L (132-148) 05/14/17 11:29 Potassium 3.7 mmol/L (3.6-5.2) 05/14/17 11:29 Chloride 105 mmol/L (98-107) 05/14/17 11:29 Carbon Dioxide 22 mmol/L (22-30) 05/14/17 11:29 Anion Gap 19 (10-20) 05/14/17 11:29 BUN 5 mg/dL (7-17) L 05/14/17 11:29 Creatinine 0.6 MG/DL (0.7-1.2) L 05/14/17 11:29 Est GFR ( Amer) > 60 05/14/17 11:29 Est GFR (Non-Af Amer) > 60 05/14/17 11:29 Random Glucose 81 mg/dL (65-105) 05/14/17 11:29 Calcium 8.7 mg/dl (8.6-10.4) 05/14/17 11:29 Phosphorus 3.3 mg/dL (2.5-4.5) 05/13/17 07:42 Magnesium 1.7 mg/dL (1.6-2.3) 05/14/17 11:29 Total Bilirubin 0.2 mg/dL (0.2-1.3) 05/14/17 11:29 AST 16 U/L (14-36) 05/14/17 11:29 ALT 24 U/L (9-52) 05/14/17 11:29 Alkaline Phosphatase 61 U/L (38-126) 05/14/17 11:29 Total Protein 7.0 g/dL (6.3-8.3) 05/14/17 11:29 Albumin 3.7 g/dL (3.5-5.0) 05/14/17 11:29 Globulin 3.3 gm/dL (2.2-3.9) 05/14/17 11:29 Albumin/Globulin Ratio 1.1 (1.0-2.1) 05/14/17 11:29 Lipase 54 U/L (23-300) 05/12/17 11:42 Urine Color Yellow (YELLOW) 05/12/17 11:38 Urine Clarity Clear (Clear) 05/12/17 11:38 Urine pH 6.0 (5.0-8.0) 05/12/17 11:38 Ur Specific [place] 1.008 (1.003-1.030) 05/12/17 11:38 Urine Protein Negative mg/dL (NEGATIVE) 05/12/17 11:38 Urine Glucose (UA) Normal mg/dL (Normal) 05/12/17 11:38 Urine Ketones Negative mg/dL (NEGATIVE) 05/12/17 11:38 Urine Blood 3+ (NEGATIVE) H 05/12/17 11:38 Urine Nitrate Negative (NEGATIVE) 05/12/17 11:38 Urine Bilirubin Negative (NEGATIVE) 05/12/17 11:38 Urine Urobilinogen Normal mg/dL (0.2-1.0) 05/12/17 11:38 Ur Leukocyte Esterase Neg Robert/uL (Negative) 05/12/17 11:38 Urine WBC (Auto) 4 /hpf (0-5) 05/12/17 11:38 Urine RBC (Auto) 71 /hpf (0-3) H 05/12/17 11:38 Ur Squamous Epith Cells < 1 /hpf (0-5) 05/12/17 11:38 Urine Bacteria Rare (<OCC) 05/12/17 11:38 Urine HCG, Qual Negative (NEGATIVE) 05/12/17 11:38 - Hospital Course Hospital Course: 31 year old female with past medical history significant for ovarian cyst ( incidental finding during ED visit days prior ) presents with complains of lower abdominal left sided flank pain with urinary urgency that has been present for the past two weeks. Patient states that she initially thought that she pulled a muscle in her lower back. She began applying icy-hot therapy and using ibuprofen without much relief. She states that she then developed a fever which brought her to the emergency department here on May 08. Here, a UA was performed which confirmed UTI. Patient was given a prescription for the antibiotic Vantin (Cefpodoxime). She was asked to take twice a day for one week. Patient states that she took the medication but did not have much resolution of her symptoms. She states that she still had urinary urgency with flank pains as well as subjective fevers last night. The pain intensified and thus she came in today for further evaluation. She denies chest pain, palpitationsm paresthesias, lightheadedness, vomiting, sick contacts, weight changes, hematochezia at this time. Of note: Patient had CT abdomen and pelvis which showed a large ovarian cyst. There were recommendations for a pelvic and transvaginal ultrasound which was performed confirming the sizes of the cyst ( 2.5 x2.5x 2.4cm). Recommendations were made to follow up with OB-CABLE INSTALLATION MANAGER outpatient and obtain a repeat ultrasound in approx 6 weeks. Patient is currently menstruating. She states that it started today. Patient is a 31 year old female who presented to the Ed with complaints of dysuria ,fever, urinary frequency, and back pain. She was recently here four days prior for a UTI and was started on vantin. There was little improvement of her symptoms so she came back to the hospital. ABX were changed on this admission. She was start on Cipro and admitted. Patient's symptoms have been monitored and are improving with the new ABX. Due to the patients history of an ovarian cyst, FARMWORKER POULTRY was consulted and a transvaginal US was performed. The study noted a 8mm echogenic foci in the midpole of the right kidney suggestive of a calculi and a complex cystic lesion pf 1.4x1.2x1.2cm. A renal US was also performed and noted 1.4cm complex cystic lesion at the level of the left ovary . Patient was instructed to follow up with an OBGYN out patient to monitor her cyst. She is stable and ready for discharge. Will be provided the appropriate information for abx outpatient. - Date & Time of H&P Date of H&P: 05/12/17 Time of H&P: 13:22 Discharge Exam - Head Exam Head Exam: ATRAUMATIC, NORMAL INSPECTION, NORMOCEPHALIC - Eye Exam Eye Exam: EOMI - ENT Exam ENT Exam: Mucous Membranes Moist - Respiratory Exam Respiratory Exam: NORMAL BREATHING PATTERN - Cardiovascular Exam Cardiovascular Exam: REGULAR RHYTHM - GI/Abdominal Exam GI & Abdominal Exam: Normal Bowel Sounds, Soft, Unremarkable. absent: Distended , Tenderness - Neurological Exam Neurological exam: Alert, Oriented x3 - Psychiatric Exam Psychiatric exam: Normal Affect, Normal Mood - Skin Skin Exam: Dry, Intact, Normal Color, Warm Discharge Plan - Discharge Medications Prescriptions: RX: Ciprofloxacin [Cipro] 500 mg PO DAILY #8 tab Tamsulosin [Flomax] 0.4 mg PO DAILY #30 cap - Follow Up Plan Condition: STABLE Disposition: HOME/ ROUTINE Instructions: Ciprofloxacin (By mouth), Tamsulosin (By mouth), Ovarian Cyst (DC ), Urinary Tract Infection in Women (DC), Urinary Tract Infection in Men (DC), Acute Pyelonephritis (DC), Acute Abdominal Pain (DC), Acute Abdominal Pain (GEN) , Dysuria (GEN) Additional Instructions: Patient is stable and clear for discharge. She needs to follow up in our clinic for care follow up of her UTI. Patient needs to get a repeat ultrasound in 6 month for follow up of her ovarian cyst. Patient should not try to conceive until finishing her course of antibiotics Please start the following medications: - Flomax 0.4g 1x per day until passage of your kidney stone - Ciprofloxacin 500mg Daily for 8 days - Tylenol 325mg for headache as needed Pleas return to the ER if symptoms return or worsen Thank you and take care Referrals: [facility] [Outside] <Kathie Conner V - Last Filed: 05/14/17 17:10> Provider - Provider Date of Admission: 05/12/17 12:59 Attending physician: Kathie Conner DO Hospital Course - Lab Results Lab Results: Micro Results 05/12/17 13:30 Blood Blood Culture - Preliminary NO GROWTH AFTER 24 HOURS 05/12/17 13:00 Blood Blood Culture - Preliminary NO GROWTH AFTER 24 HOURS Most Recent Lab Values WBC 7.9 K/uL (4.8-10.8) 05/14/17 11:29 RBC 4.82 Mil/uL (3.80-5.20) 05/14/17 11:29 Hgb 10.2 g/dL (11.0-16.0) L 05/14/17 11: Hct 32.0 % (34.0-47.0) L 05/14/17 11: MCV 66.5 fL (81.0-99.0) L 05/14/17 11:29 MCH 21.1 pg (27.0-31.0) L 05/14/17 11: MCHC 31.7 g/dL (33.0-37.0) L 05/14/17 11:29 RDW 17.9 % (11.5-14.5) H 05/14/17 11:29 Plt Count 353 K/uL (130-400) 05/14/17 11: MPV 8.5 fL (7.2-11.7) 05/14/17 11: Neut % (Auto) 63.8 % (50.0-75.0) 05/14/17 11: Lymph % (Auto) 27.5 % (20.0-40.0) 05/14/17 11: Patrick % (Auto) 5.7 % (0.0-10.0) 05/14/17 11:29 Eos % (Auto) 2.9 % (0.0-4.0) 05/14/17 11: Baso % (Auto) 0.1 % (0.0-2.0) 05/14/17 11:29 Neut # 5.0 K/uL (1.8-7.0) 05/14/17 11: Lymph # 2.2 K/uL (1.0-4.3) 05/14/17 11:29 Patrick # 0.5 K/uL (0.0-0.8) 05/14/17 11:29 Eos # 0.2 K/uL (0.0-0.7) 05/14/17 11:29 Baso # 0.0 K/uL (0.0-0.2) 05/14/17 11:29 Differential Comment 05/12/17 11:42 PT 12.7 SECONDS (9.7-12.2) H 05/13/17 07:42 INR 1.1 05/13/17 07:42 APTT 32 SECONDS (21-34) 05/13/17 07:42 Sodium 142 mmol/L (132-148) 05/14/17 11:29 Potassium 3.7 mmol/L (3.6-5.2) 05/14/17 11:29 Chloride 105 mmol/L (98-107) 05/14/17 11:29 Carbon Dioxide 22 mmol/L (22-30) 05/14/17 11:29 Anion Gap 19 (10-20) 05/14/17 11:29 BUN 5 mg/dL (7-17) L 05/14/17 11:29 Creatinine 0.6 MG/DL (0.7-1.2) L 05/14/17 11:29 Est GFR ( Amer) > 60 05/14/17 11:29 Est GFR (Non-Af Amer) > 60 05/14/17 11:29 Random Glucose 81 mg/dL (65-105) 05/14/17 11:29 Calcium 8.7 mg/dl (8.6-10.4) 05/14/17 11:29 Phosphorus 3.3 mg/dL (2.5-4.5) 05/13/17 07:42 Magnesium 1.7 mg/dL (1.6-2.3) 05/14/17 11:29 Total Bilirubin 0.2 mg/dL (0.2-1.3) 05/14/17 11:29 AST 16 U/L (14-36) 05/14/17 11:29 ALT 24 U/L (9-52) 05/14/17 11:29 Alkaline Phosphatase 61 U/L (38-126) 05/14/17 11:29 Total Protein 7.0 g/dL (6.3-8.3) 05/14/17 11:29 Albumin 3.7 g/dL (3.5-5.0) 05/14/17 11:29 Globulin 3.3 gm/dL (2.2-3.9) 05/14/17 11:29 Albumin/Globulin Ratio 1.1 (1.0-2.1) 05/14/17 11:29 Lipase 54 U/L (23-300) 05/12/17 11:42 Urine Color Yellow (YELLOW) 05/12/17 11:38 Urine Clarity Clear (Clear) 05/12/17 11:38 Urine pH 6.0 (5.0-8.0) 05/12/17 11:38 Ur Specific [place] 1.008 (1.003-1.030) 05/12/17 11:38 Urine Protein Negative mg/dL (NEGATIVE) 05/12/17 11:38 Urine Glucose (UA) Normal mg/dL (Normal) 05/12/17 11:38 Urine Ketones Negative mg/dL (NEGATIVE) 05/12/17 11:38 Urine Blood 3+ (NEGATIVE) H 05/12/17 11:38 Urine Nitrate Negative (NEGATIVE) 05/12/17 11:38 Urine Bilirubin Negative (NEGATIVE) 05/12/17 11:38 Urine Urobilinogen Normal mg/dL (0.2-1.0) 05/12/17 11:38 Ur Leukocyte Esterase Neg Robert/uL (Negative) 05/12/17 11:38 Urine WBC (Auto) 4 /hpf (0-5) 05/12/17 11:38 Urine RBC (Auto) 71 /hpf (0-3) H 05/12/17 11:38 Ur Squamous Epith Cells < 1 /hpf (0-5) 05/12/17 11:38 Urine Bacteria Rare (<OCC) 05/12/17 11:38 Urine HCG, Qual Negative (NEGATIVE) 05/12/17 11:38 Attending/Attestation - Attestation I have personally seen and examined this patient.: Yes I have fully participated in the care of the patient.: Yes I have reviewed all pertinent clinical information, including history, physical exam and plan: Yes Notes (Text): Patient seen, examined, and case discussed with day-time resident during rounds. Reviewed repeat pelvic an renal ultrasounds. Appreciate input from OBGYN. Patient now aware she has kidney stones, which are small. patient advised PO hydration and started on Flomax 0.4mg PO daily (). Patient's left side flank pain is resolved. Patient to complete ten days of antibiotics total: patient given prescription Ciprofloxacin 500mg PO BID () and advised to take with yogurt in between doses. Patient also notes she feels constipated. Patient encouraged PO hydration and increase fiber in her diet including psyillium husks, cruciferous vegetables, and high fiber foods. Patient advised to follow-up in the clinic to make sure UTI has cleared. Discussed discharge order and discharge instructions with resident and patient at bedside. Patient expressed verbalized understanding and agreed with the plan. Patient advised if flank pain recurs and if she feels fever, to come to the emergency room or be evaluated by a doctor immediately. Rx: 1) Ciprofloxcin 500mg PO BID (16/0 refill) 2) Flomax 0.4mg PO daily (30/0 refill) This is a summary of patient's hospitalization. Please see EMR for further details. Discharge Diagnoses: (1) Pyelonephritis Assessment and Plan: * Previously on 7 day course of Vantin ( Cefpoxomine); Patient took approx 4 days worth prior to admission * Urine culture (05/12/17): no growth * UA (05/12/17):3+ blood, hematuria: 71, negative urine hcg * 2.5 X 2.5cm X. 2.4 CM complex heterogenous lesion involving the left ovary. Recommended 6 week ultrasound follow-up to assess for resolution. Small free fluid adjacent to bilateral ovaries-->recommend to follow-up with OBGYN as outpatient upon idscharge * CT Abdomen/Pelvis (05/08/17): suspected presence of large ovarian cysts versus possibility of hydrosalpinx. Recommend pelvis US, cholecystectomy. Diverticulosis without CT evidence of acute diverticulitis; trace pleural effusions versus pleural thickening * Repeat pelvic US * Ordered for Renal US * Start Rocephin 1 gram IV q 12 hours (active since 05/13/17) * Discharge: Ciprofloxcin 500mg PO bid (16/0) for 8 days * Florastor 250mg PO bid Status: Acute (2) Complex ovarian cyst Assessment and Plan: * Patient dimensions as noted on Transvag U/S from 05/08: 2.5 x 25 x 2.4 cm complex lesions involving left ovary. Per radiology report recommended for F/U with ultrasound in 6 weeks upon discharge * Will need repeat pelvic in 6 weeks Status: Acute (3) Nephrolithiasis Assessment and Plan: * CT Abdomen/Pelvis (05/08/17): suspected presence of large ovarian cysts versus possibility of hydrosalpinx. Recommend pelvis US, cholecystectomy. Diverticulosis without CT evidence of acute diverticulitis; trace pleural effusions versus pleural thickening * Renal US (05/13/17): 8mm echogenic foci in the midpole of the right kidney suggestive for a calculus. Mild fullness of the right renal collecting system. Mild fullness in the upper pole of the left renal collecting system * Rx. Flomax 0.4mg PO daily and encourage PO hydration. Status: Chronic (4) Prophylactic measure Assessment and Plan: * SCDs, ambulates * Will continue to monitor Status: Acute
[2017-05-14] MEDS ORDERED: POLYETHYLENE GLYCOL 3350 17 GM/Dose PACKET PO ONE (14:15)
== END 2017-05-14 14:55 | disposition home or self-care (01) | DRG 690 ==
LOC: C.ER 10:25 → C.9E 12:59 → C.3T 15:57
PROVIDERS: ADMIT Hospitalist; ATTEND Hospitalist
DX: N12 Tubulo-interstitial nephritis, not specified as acute or chronic (principal); N20.0 Calculus of kidney; D64.9 Anemia, unspecified; K57.90 Diverticulosis of intestine, part unspecified, without perforation or abscess without bleeding; K59.00 Constipation, unspecified; N83.202 Unspecified ovarian cyst, left side

== ENCOUNTER 2017-07-04 10:33 | Emergency (ER) | payer OTHER ==
[2017-07-04 10:33] VITALS: BMI 27.8
--- NOTE | 2017-07-04 11:16 | C.PDOC ---
History Of Present Illness 31 year old female, , 8 weeks , presents to ED for evaluation of left sided back pain for the past 3 months, but worse in the last 3 days. Notes that pain is worse with change in position while sleeping at night. Pt states that she was diagnosed with kidney stone on the right side, denies any pain on the right side at this time. Note, pt was admitted on 05/12/17 for pyelonephritis. Notes taking Tylenol for pain at home. Pt also notes that she noticed blood with urination yesterday x 1 episode that has resolved. (+) nausea. Denies vaginal bleeding, vaginal discharge, abdominal pain, vomiting, diarrhea, or fever. Time Seen by Provider: 07/04/17 11:04 Chief Complaint (Nursing): Back Pain History Per: Patient History/Exam Limitations: no limitations Onset/Duration Of Symptoms: Days Current Symptoms Are (Timing): Still Present Quality Of Discomfort: "Pain" Previous Symptoms: Back Pain. denies: Prior Injury Associated Symptoms: None. denies: Incontinence, New Weakness, New Numbness Exacerbating Factor(s): Movement Recent travel outside of the [facility]: No Additional History Per: Patient, Prior Records Past Medical History Reviewed: Historical Data, Nursing Documentation, Vital Signs Vital Signs: Last Vital Signs Temp 97.6 F 07/04/17 14:51 Pulse 75 07/04/17 14:51 Resp 20 07/04/17 14:51 BP 97/63 L 07/04/17 14:51 Pulse Ox 100 07/04/17 14:51 - Medical History PMH: Gall Bladder Disease (2014) Denies: Chronic Kidney Disease Surgical History: Cholecystectomy (07/2015) Family History: States: Unknown Family Hx - Social History Hx Alcohol Use: No Hx Substance Use: No - Immunization History Hx Tetanus Toxoid Vaccination: No Hx Influenza Vaccination: No Hx Pneumococcal Vaccination: Yes Review Of Systems Except As Marked, All Systems Reviewed And Found Negative. Constitutional: Negative for: Fever, Chills Gastrointestinal: Positive for: Nausea. Negative for: Vomiting, Abdominal Pain , Diarrhea Genitourinary: Positive for: Hematuria. Negative for: Dysuria, Frequency, Incontinence, Vaginal Discharge, Vaginal Bleeding Musculoskeletal: Positive for: Back Pain (left side) Neurological: Negative for: Weakness, Numbness Physical Exam - Physical Exam Appears: Non-toxic, No Acute Distress Skin: Normal Color, Warm, Dry Head: Atraumatic, Normacephalic Eye(s): bilateral: Normal Inspection, EOMI Nose: Normal Oral Mucosa: Moist Neck: Normal ROM, Supple Chest: Symmetrical Cardiovascular: Rhythm Regular, No Murmur Respiratory: Normal Breath Sounds, No Rales, No Rhonchi, No Wheezing Gastrointestinal/Abdominal: Soft, No Tenderness Back: CVA Tenderness (left), No Vertebral Tenderness Extremity: Normal ROM Neurological/Psych: Oriented x3, Normal Speech ED Course And Treatment - Laboratory Results Result Diagrams: 07/04/17 11:36 07/04/17 11:36 O2 Sat by Pulse Oximetry: 99 (RA) Pulse Ox Interpretation: Normal - CT Scan/US Pelvic US Other Rad Studies (CT/US): Read By Radiologist, Radiology Report Reviewed CT/US Interpretation: Pelvic ultrasound. History: . Pelvic pain. Bleeding. Comparison: None available. Technique: Real-time sonography was performed through the pelvis utilizing transabdominal and transvaginal techniques. Findings: Limited study for viability purposes only. Heterogeneous uterus measuring up to 8.1 centimeters. Retroverted. Cervix measures 3.3 centimeters in length. 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 Interval followup and or correlation with pelvic MRI may be helpful if clinically indicated to better define the anatomy. Right endometrial cavity measures up to 8.6 millimeters in width, heterogeneous in appearance. Within the left endometrial cavity, there is a suggestion of an intrauterine with intrauterine gestational sac measuring 1.63 centimeters corresponding to a gestational age of 6 weeks and 0 days. Yolk sac identified measuring 3.4 millimeters. [place]- rump length measures 9 millimeters corresponding to a gestational age of 6 weeks and 6 days. heart rate of 139 beats per minute. Small hypoechoic foci adjacent to the gestational which may represent a small amount of subchorionic hemorrhage. Interval attention to this area on followup exam is recommended. Small amount of free fluid is noted adjacent to the uterine fundus. Right ovary: 3.1 x 2.1 x 2.8 centimeters. Normal flow. Left ovary: 3.0 x 2.1 x 2.1 centimeters. Normal flow. Impression: 1. Limited study for viability purposes only. 2. 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 Interval followup and or correlation with pelvic MRI may be helpful if clinically indicated to better define the anatomy. Right endometrial cavity measures up to 8.6 millimeters in width, heterogeneous in appearance. Within the left endometrial cavity, there is a suggestion of an intrauterine with intrauterine gestational sac measuring 1.63 centimeters corresponding to a gestational age of 6 weeks and 0 days. Yolk sac identified measuring 3.4 millimeters. [place]-rump length measures 9 millimeters corresponding to a gestational age of 6 weeks and 6 days. heart rate of 139 beats per minute. Small hypoechoic foci adjacent to the gestational which may represent a small amount of subchorionic hemorrhage. Interval attention to this area on followup exam is recommended. Limited 1st trimester ultrasound for viability purposes only. Continued interval followup with serial ultrasound, serial HCG levels, and gynecological consultation would be helpful if clinically indicated. Abd US Other Rad Studies (CT/US): Read By Radiologist, Radiology Report Reviewed CT/US Interpretation: abdominal ultrasound. History: Abdominal and left flank pain. Comparison: None available. Technique: Real-time sonography was performed through the abdomen. Findings: Liver: 15.5 centimeters in length. Normal echogenicity. Prior cholecystectomy. Common bile duct measures 4.7 millimeters, within normal limits. Visualized portions of the pancreas are preserved. Pancreatic tail was not well visualized. Top-normal spleen measuring up to 12.3 centimeters in length. Small rounded accessory splenule noted adjacent to the splenic hilum. Visualized aorta and IVC are preserved. Right kidney: 11.6 x 4.1 x 4.9 centimeters. Normal echogenicity. No calculi or hydronephrosis. Left Kidney: 10.6 x 5.2 x 5.6 centimeters. Normal echogenicity. No calculi or hydronephrosis. Impression: Prior cholecystectomy. Pancreatic tail not well visualized. Small accessory splenule adjacent to the spleen. No evidence of calculi or hydronephrosis noted within the kidneys. Progress Note: Blood work, UA, abdomen US, Preg 1st trimester US ordered and reviewed. Patient was given IV fluids. On re-eval, patient is resting comfortably, reports improvement of back pain, no fever, no bony tenderness, no numbness, no weakness, or abdominal pain. Patient is ambulatory in the emergency department with no signs of discomfort. Patient was advised to follow up with their physician in 1-2 days. Case discussed with Dr Trinidad who reviewed labs and US and agreed upon plan and discharge. Disposition - Disposition Disposition: HOME/ ROUTINE Disposition Time: 13:22 Condition: STABLE Additional Instructions: Follow up with [employer] in 2-3 days for further evaluation. Return to the emergency department at any time if symptoms persist or worsen. Instructions: Back Pain (ED) Forms: [facility] [employer] (Macedonian) - Clinical Impression Clinical Impression: Back pain, First trimester bleeding - PA / ADULT PAROLE OFFICER / Resident Statement MD/DO has reviewed & agrees with the documentation as recorded. - Scribe Statement The provider has reviewed the documentation as recorded by the Scribe Elidia Garner All medical record entries made by the Obinna were at my direction and personally dictated by me. I have reviewed the chart and agree that the record accurately reflects my personal performance of the history, physical exam, medical decision making, and the department course for this patient. I have also personally directed, reviewed, and agree with the discharge instructions and disposition.
[2017-07-04] MEDS ORDERED: Sodium Chloride 0.9% 1,000 ML IV ONE (11:25)
[2017-07-04] MEDS ORDERED: Sodium Chloride 0.9% 1,000 ML ONE (11:39)
[2017-07-04 11:41] LABS: BASO % 0.2 % (0.0-2.0); EOS # 0.4 K/uL (0.0-0.7); MONO # 0.6 K/uL (0.0-0.8)
[2017-07-04 11:46] LABS: EOS % 3.8 % (0.0-4.0); HEMATOCRIT 32.4 % (34.0-47.0); LYMPH # 2.9 K/uL (1.0-4.3); LYMPH % 28.8 % (20.0-40.0); MEAN CELL VOLUME 67.4 fL (81.0-99.0); MEAN CORPUSCULAR HEMOGLOBIN 22.1 pg (27.0-31.0); MEAN CORPUSCULAR HGB CONC 32.9 g/dL (33.0-37.0); MEAN PLATELET VOLUME 8.5 fL (7.2-11.7); MONO % 6.4 % (0.0-10.0); NRBC % 0.1 % (0.0-2.0); RED CELL DISTRIBUTION WIDTH 18.1 % (11.5-14.5); WHITE BLOOD COUNT 10.2 K/uL (4.8-10.8)
[2017-07-04 11:49] LABS: RBC URINE < 1 /hpf (0-3); URINE BILIRUBIN NEGATIVE (NEGATIVE); URINE BLOOD NEGATIVE (NEGATIVE); URINE COLOR Yellow (YELLOW); URINE GLUCOSE (UA) NORMAL (Normal); URINE KETONE NEGATIVE (NEGATIVE); URINE LEUKOCYTE ESTERASE NEG Leu/uL (Negative); URINE PROTEIN NEGATIVE (NEGATIVE); URINE UROBILINOGEN NORMAL mg/dL (0.2-1.0); WBC URINE 1 /hpf (0-5)
[2017-07-04 11:54] LABS: CHLORIDE 102 mmol/L (98-107)
[2017-07-04 11:55] LABS: SODIUM 134 mmol/L (132-148)
[2017-07-04 11:57] LABS: ALKALINE PHOSPHATASE 56 U/L (38-126); AST/SGOT 35 U/L (14-36); BILIRUBIN,TOTAL 0.4 mg/dL (0.2-1.3); BLOOD UREA NITROGEN 7 mg/dL (7-17); CARBON DIOXIDE 20 mmol/L (22-30); GFR AFRICAN-AMERICAN > 60; TOTAL PROTEIN 8.7 g/dL (6.3-8.3)
[2017-07-04 11:58] LABS: ALT/SGPT 37 U/L (9-52); CALCIUM 9.3 mg/dl (8.6-10.4); GLUCOSE,RANDOM 83 mg/dL (65-105)
--- NOTE | 2017-07-04 13:07 | US ---
Abdominal ultrasound History: Abdominal and left flank pain. Comparison: None available. Technique: Real-time sonography was performed through the abdomen. Findings: Liver: 15.5 centimeters in length. Normal echogenicity. Prior cholecystectomy. Common bile duct measures 4.7 millimeters, within normal limits. Visualized portions of the pancreas are preserved. Pancreatic tail was not well visualized. Top-normal spleen measuring up to 12.3 centimeters in length. Small rounded accessory splenule noted adjacent to the splenic hilum. Visualized aorta and IVC are preserved. Right kidney: 11.6 x 4.1 x 4.9 centimeters. Normal echogenicity. No calculi or hydronephrosis. Left Kidney: 10.6 x 5.2 x 5.6 centimeters. Normal echogenicity. No calculi or hydronephrosis. Impression: Prior cholecystectomy. Pancreatic tail not well visualized. Small accessory splenule adjacent to the spleen. No evidence of calculi or hydronephrosis noted within the kidneys.
--- NOTE | 2017-07-04 13:18 | US ---
Pelvic ultrasound History: . Pelvic pain. Bleeding. Comparison: None available. Technique: Real-time sonography was performed through the pelvis utilizing transabdominal and transvaginal techniques. Findings: Limited study for viability purposes only. Heterogeneous uterus measuring up to 8.1 centimeters. Retroverted. Cervix measures 3.3 centimeters in length. 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 Interval followup and or correlation with pelvic MRI may be helpful if clinically indicated to better define the anatomy. Right endometrial cavity measures up to 8.6 millimeters in width, heterogeneous in appearance. Within the left endometrial cavity, there is a suggestion of an intrauterine with intrauterine gestational sac measuring 1.63 centimeters corresponding to a gestational age of 6 weeks and 0 days. Yolk sac identified measuring 3.4 millimeters. [place]-rump length measures 9 millimeters corresponding to a gestational age of 6 weeks and 6 days. heart rate of 139 beats per minute. Small hypoechoic foci adjacent to the gestational which may represent a small amount of subchorionic hemorrhage. Interval attention to this area on followup exam is recommended. Small amount of free fluid is noted adjacent to the uterine fundus. Right ovary: 3.1 x 2.1 x 2.8 centimeters. Normal flow. Left ovary: 3.0 x 2.1 x 2.1 centimeters. Normal flow. Impression: 1. Limited study for viability purposes only. 2. 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 Interval followup and or correlation with pelvic MRI may be helpful if clinically indicated to better define the anatomy. Right endometrial cavity measures up to 8.6 millimeters in width, heterogeneous in appearance. Within the left endometrial cavity, there is a suggestion of an intrauterine with intrauterine gestational sac measuring 1.63 centimeters corresponding to a gestational age of 6 weeks and 0 days. Yolk sac identified measuring 3.4 millimeters. [place]-rump length measures 9 millimeters corresponding to a gestational age of 6 weeks and 6 days. heart rate of 139 beats per minute. Small hypoechoic foci adjacent to the gestational which may represent a small amount of subchorionic hemorrhage. Interval attention to this area on followup exam is recommended. Limited 1st trimester ultrasound for viability purposes only. Continued interval followup with serial ultrasound, serial HCG levels, and gynecological consultation would be helpful if clinically indicated.
[2017-07-04 14:52] VITALS: BP 97/63; PULSE 75; RESP 20; TEMP 97.6
[2017-07-05 08:17] VITALS: O2SAT 99
== END 2017-07-04 14:50 | disposition home or self-care (01) ==
LOC: C.ER 10:33
DX: O20.9 Hemorrhage in early pregnancy, unspecified (principal); Z3A.08 8 weeks gestation of pregnancy; M54.9 Dorsalgia, unspecified
CPT/HCPCS: 76700; 76805; 76817; 80053; 81001; 84702; 84703; 85025; 86850; 86900; 87086; 96360; 99283; J7040

== ENCOUNTER 2018-02-13 19:40 | Emergency (ER) | payer MEDICAID, OTHER ==
[2018-02-13 20:23] VITALS: BMI 34.6
--- NOTE | 2018-02-14 00:24 | OBHP ---
Datetime: 02/13/2018 23:52 IP Adm Impression: Term, intrauterine IP Admit Plan: Discharge home Admit Comment, IP Provider: 32 y.o. , LMP 05/11/17, BINH 02/15/18, EGA 39w 5d, referred for IOL for possible LGA - S/P ultrasound 02/06/18, EFW 4507 grams. (+) AFM; denies LOF, VB, Ctx. car e: GACAC - JONY: noted for as above; no GDM; ultrasound 02/06 also commented on 1) "loops of bowel seen once again"; and 2 bilateral pyelectais. Patient was referred fo rgenetics counseling due to unilateral pyelectasis; seen by telecom specialist 10/14/17; declined amnio. blood work for thalassemia r ecommended. P Ob: 2008, , female, 3850 Kg (8lg 5oz), [place]. NOted for 3rd degree laceration. Patient state s had a compicated puerpeium; had disturbing pelvic floor issues, which contributed to post de pression. Spont ab x 1, 2012, 8 weeks, with 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 2014, laparoscopic umbilical hernia repair and cholecystectomy NKDA Meds: PNV Soc Hx: denies tobacco, illicit drug or EtOH use. x 10years. Stay at [facility] mother. Fam Hx: MOther alive 58y.o. HTN. Father alive 63 y.o. HTN. No known fam h/o cancer P.E.: as above. WD in NAD. Awake, alert, oriented to time, person and place. Pleasant and cooperat vasquez. Accompanied by and mother Assessment: 32 y.o P1011, 39w 5d, possible macrosomic . with loop of bowel, and bilateral py electasis. It was discused with patient and her family, possiblility of Down's syndrome exists, as we ll as any anatomic annmaly to the fetus' GI tract. To this end, delivery in a Level 3 institution is recommended. Patient and are in agreement Category 1 tracing. Clinically stable. Plan: 1) Discharge home 2) NPO after midnight 3) Patient counseled to go to [facility] [place] in the [place] for her elective primary . Dale gann and expressed concern that they may be turned away. To this end referred to [facility]. Pelvic Type - PN: Not Done Extremities - PN: Normal Abdomen - PN: Normal Back - PN: Normal Breast - PN: Not Done Lungs - PN: Normal Heart - PN: Normal Thyroid - PN: Not Done Neurologic - PN: Normal HEENT - PN: Normal General - PN: Normal Weight - Estimated: 4507 Presentation-Admit: Vertex FHR - Baseline A Provider: 145 Contraction Comments Provider: none Gestation - Est Wks by US: 39w 5d IP Hx Assessment: The History has been Reviewed and is Current EGA AdmitDate IP: 39.6 Vital Signs Provider: Reviewed IP Chief Complaint: Other NICHD Variability Prov Fetus A: Moderate 6-25bpm NICHD Accel Fetus A IP Provider: [id number] FHR Category Provider Fetus A: Category I NICHD Decel Fetus A IP Provider: None Dilatation, Provider: not performed Genitourinary Exam: Not Done
[2018-02-14 02:05] VITALS: BP 136/80; PULSE 98; RESP 20; TEMP 98.4
== END 2018-02-13 21:15 | disposition home or self-care (01) ==
LOC: C.EROB 19:40
DX: O26.893 Other specified pregnancy related conditions, third trimester (principal); Z3A.39 39 weeks gestation of pregnancy